=== PATIENT | male | born 1935 | race Caucasian/White ===

== ENCOUNTER 2023-11-14 08:04 | Emergency (ER) | payer MEDICARE, OTHER, SELFPAY ==
[2023-11-14 08:17] VITALS: BP 91/57; PULSE 86; TEMP 37.3; O2SAT 90; BMI 30.4
--- NOTE | 2023-11-14 08:29 | XRR_ITS ---
PROCEDURE INFORMATION: Exam: XR Abdomen Exam date and time: 11/14/2023 8:42 AM Age: 88 years old Clinical indication: Abdominal tenderness and constipation and nausea TECHNIQUE: Imaging protocol: Radiologic exam of the abdomen. Views: Frontal supine view of the abdomen. 1 View. COMPARISON: CR (CHEST, ) 11/14/2023 8:41 AM FINDINGS: Gastrointestinal tract: Nonobstructive bowel-gas pattern. Bones/joints: No acute osseous findings. Soft tissues: Visualized superficial soft tissues are normal in appearance. Other findings: Superior aspect of the abdomen are excluded from the field of view. XR/XR abdomen 1V* [id number] IMPRESSION: Nonobstructive bowel gas pattern.
--- NOTE | 2023-11-14 08:29 | XRR_ITS ---
PROCEDURE INFORMATION: Exam: XR Chest Exam date and time: 11/14/2023 8:41 AM Age: 88 years old Clinical indication: Pain; Cough and shortness of breath; Chest pressure and intercostal; Prior surgery; Surgery date: 6+ months; Surgery type: Pacemaker TECHNIQUE: Imaging protocol: Radiologic exam of the chest. Views: 1 view. COMPARISON: CR XR chest 1V portable [id number] 11/29/2019 3:07 PM FINDINGS: Tubes, catheters and devices: Single lead electronic cardiac device projects over the left chest, stable. Lungs: Mild bibasilar hazy and linear opacities. No focal consolidation to suggest overlying pneumonia. Pleural spaces: No large pleural effusion. No distinct pneumothorax. Heart/Mediastinum: Cardiomediastinal silhouette is midline and enlarged, stable. Vasculature: Calcifications of the aortic knob. Bones/joints: No acute osseous findings. XR/XR chest 1V portable [id number] IMPRESSION: 1. Cardiomediastinal silhouette is midline and enlarged, stable. 2. Mild bibasilar hazy and linear opacities. This likely represents mild bibasilar subsegmental atelectasis.
--- NOTE | 2023-11-14 08:30 | ED_ITS ---
HPI - General Adult 2 General: Chief complaint: General Medical Stated complaint: kidney trouble Time Seen by Provider: 11/14/23 08:07 History of Present Illness: Patient presents to the ER with complaints of cough, shortness of breath no bowel movement, decreased urine production all over the last 3 days. Patient is also had urinary incontinence when he coughs. Patient denies any fevers or chills, patient has had nausea and vomiting. Patient does have A-fib and is on Coumadin. Patient is not complaining of any abdominal pain however he says he has not had a bowel movement for over 3 days. Review of Systems 2 General: Reports: 10 or more systems reviewed and unremarkable except in HPI and below PFSH ED 2 PFSH: Surgical History History of colonoscopy 2005 History of inguinal hernia repair, bilateral (x3) History of ankle surgery 1954 Social History Second hand smoke exposure: No Alcohol intake: never Substance/Drug Use: never Caregiver/support person: Yes Lives independently: Yes Household members: spouse Marital status: service: No Current occupational status: retired Current gender identity: Male Special donaldo needs: No Agree to transfusion: Yes Physical Exam 2 Const: COMMON NORMALS: no acute distress, average body habitus, patient oriented x3, no limitations, healthy appearing, alert and well nourished HENMT: COMMON NORMALS: normocephalic, atraumatic, hearing grossly normal bilaterally, external ears normal, EAC's normal, Normal external nose present, moist oral mucous membranes and oropharynx normal HEAD & SCALP: normocephalic and atraumatic NOSE: Normal external nose present EXTERNAL EAR: Yes external ears normal EXTERNAL AUDITORY CANAL: EAC's normal Neck/C-Spine: COMMON NORMALS: no JVD Chest: COMMONS NORMALS: normal inspection of the chest and normal palpation of entire chest wall Resp: COMMON NORMALS: normal respiratory effort, No retractions, No use of accessory muscles and clear to auscultation bilaterally AUSCULTATION: clear to auscultation bilaterally Cardio: COMMON NORMALS: no JVD, regular rate, regular rhythm, S1 normal heart sound present, S2 normal heart sound present, No gallops present (Cardio), No clicks present (Cardio), No murmurs present (Cardio) and No rub (Cardio) R ATE: regular rate RHYTHM: regular rhythm HEART SOUNDS: S1 normal heart sound present and S2 normal heart sound present GI: COMMON NORMALS: Normal to inspection, nondistended, normoactive bowel sounds present, Soft to palpation, non-tender, No hepatosplenomegaly present and no masses PALPATION: Yes Soft to palpation and Yes No hepatosplenomegaly present : OTHER: Urinary incontinence noted Neuro: COMMON NORMALS: patient oriented x3 SENSORIUM/ORIENTATION: Yes alert Course 2 Vital Signs: Vital signs: Vital Signs Temperature 99.1 F 11/14/23 08:17 Pulse Rate 88 11/14/23 10:42 Respiratory Rate 18 11/14/23 10:42 Blood Pressure 154/97 11/14/23 10:42 Pulse Oximetry 91 11/14/23 10:42 Oxygen Delivery Me thod Room Air 11/14/23 10:09 MDM - General Adult Medical Decision Making Lab work was obtained which revealed a sodium of 127, magnesium 1.6, total bilirubin 1.6, AST 67 ALT 51 [place] 4[address] urinalysis did not show signs of infection. Abdominal x-ray showed nonobstructive bowel gas pattern and chest x- ray atelectasis. These results was discussed with the patient and . Levy catheter will be left in place to have family practice doctor remove on Wednesday per patient's wishes cough medicine will be sent to [facility] in failure. Medical Records I reviewed the patient's medical records. Lab Data I reviewed the patient's lab results. 11/14/23 09:25 11/14/23 09:25 Radiology Impressions Abdomen X-Ray 11/14/23 08:29 IMPRESSION: Nonobstructive bowel gas pattern. Chest X-Ray 11/14/23 08:29 IMPRESSION: 1. Cardiomediastinal silhouette is midline and enlarged, stable. 2. Mild bibasilar hazy and linear opacities. This likely represents mild bibasilar subsegmental atelectasis. Laboratory Results WBC 10.05 10^3/uL (3.29-11.43) 11/14/23 09:25 RBC 4.16 10^6/uL (3.85-5.65) 11/14/23 09:25 Hgb 14.50 g/dL (11.27-16.99) 11/14/23 09:25 Hct 41.6 % (37-53) 11/14/23 09:25 MCV 100.0 fl (82-101) 11/14/23 09:25 MCH 34.9 pg (27-33) H 11/14/23 09:25 MCHC 34.9 g/dL (30-55) 11/14/23 09:25 RDW 13.2 % (12.1-15.1) 11/14/23 09:25 Plt Count 178 10^3/cmm (157-399) 11/14/23 09:25 MPV 8.7 fL (7.4-10.4) 11/14/23 09:25 Neut % (Auto) 82.4 % 11/14/23 09:25 Lymph % (Auto) 7.0 % 11/14/23 09:25 [place] % (Auto) 10.2 % 11/14/23 09:25 Eos % (Auto) 0.0 % 11/14/23 09:25 Baso % (Auto) 0.1 % 11/14/23 09:25 Neut # (Auto) 8.28 10^3/uL (1.8-7.7) H 11/14/23 09:25 Lymph # (Auto) 0.7 10^3/uL (0.8-4.8) L 11/14/23 09:25 [place] # (Auto) 1.0 10^3/uL (0.2-0.9) H 11/14/23 09:25 Eos # (Auto) 0.0 10^3/uL (0.0-0.8) 11/14/23 09:25 Baso # (Auto) 0.0 10^3/uL (0.0-0.1) 11/14/23 09:25 Nucleated RBC % (auto) 0 % 11/14/23 09: Nucleated RBCs # 0.0 /100WBC 11/14/23 09:25 PT 15.50 SECONDS (12.1-14.9) H 11/14/23 09:25 INR 1.19 (0.8-1.2) 11/14/23 09:25 Sodium 127 mmol/L (136-145) L 11/14/23 09:25 Potassium 4.0 mmol/L (3.5-5.1) 11/14/23 09:25 Chloride 93 mmol/L (98-107) L 11/14/23 09:25 Carbon Dioxide 24 mmol/L (22-29) 11/14/23 09:25 Anion Gap 14.0 (5-19) 11/14/23 09:25 BUN 12 mg/dL (8-23) 11/14/23 09:25 Creatinine 0.9 mg/dL (0.7-1.2) 11/14/23 09:25 GFR Calculation Not Reportable 11/14/23 09:25 Glucose 106 mg/dL (65-115) 11/14/23 09:25 Calculated Osmolality 264 mOsm/kg (285-295) L 11/14/23 09:25 Calcium 8.2 mg/dL (8.5-10.5) L 11/14/23 09:25 Magnesium 1.6 mg/dL (1.7-2.3) L 11/14/23 09:25 Total Bilirubin 1.6 mg/dL (0.15-1.2) H 11/14/23 09:25 AST 67 U/L (0-40) H 11/14/23 09:25 ALT 51 U/L (0-41) H 11/14/23 09:25 Alkaline Phosphatase 87 U/L (40-130) 11/14/23 09:25 NT-Pro-B Natriuret Pep 4843 pg/mL (0-450) H 11/14/23 09:25 Total Protein 6.2 g/dL (6.6-8.7) L 11/14/23 09:25 Albumin 3.1 g/dL (3.5-5.2) L 11/14/23 09:25 Globulin 3.1 g/dL (1.3-4.6) 11/14/23 09:25 Urine Color Yellow (Yellow) 11/14/23 09:20 Urine Appearance Clear (CLEAR) 11/14/23 09:20 Urine pH 6 (5-7) 11/14/23 09:[address] 1.015 (1.005-1.030) 11/14/23 09:20 Urine Protein 1+ (Negative) H 11/14/23 09:20 Urine Glucose (UA) Norm (Normal) 11/14/23 09:20 Urine Ketones Negative (Negative) 11/14/23 09:20 Urine Blood Trace (Negative) H 11/14/23 09:20 Urine Nitrate Negative (Negative) 11/14/23 09:20 Urine Bilirubin 1+ (Negative) H 11/14/23 09:20 Urine Urobilinogen 8 mg/dL (Negative) H 11/14/23 09:20 Ur Leukocyte Esterase Negative (Negative) 11/14/23 09:20 Urine RBC 0-4 /hpf (0-2) H 11/14/23 09:20 Urine WBC Rare /hpf (0-5) 11/14/23 09:20 Ur Squamous Epith Cells 0-4 /hpf (0-5) H 11/14/23 09:20 Amorphous Sediment Not Reportable 11/14/23 09:20 Urine Bacteria Trace /hpf (NONE) 11/14/23 09:20 All radiology interpretation(s) finalized by discharge Discharge Plan Discharge Patient Disposition: Home Clinical Impression: Acute hyponatremia Cough Qualifiers: Cough type: acute Qualified Code(s): R05.1 - Acute cough Urinary incontinence Qualifiers: Urinary Incontinence type: unspecified incontinence Qualified Code(s): R32 - Unspecified urinary incontinence Condition: Stable Prescriptions: New benzonatate 100 mg capsule 100 mg PO TID PRN (Reason: cough) Qty: 30 0RF No Action triamcinolone acetonide 0.1 % cream 1 applic TOPICAL DAILY Qty: 30 0RF Rx Instructions: use as directed. diclofenac sodium [Voltaren Arthritis Pain] 1 % gel 4 g topical QID Qty: 100 0RF Rx Instructions: use on right arm pantoprazole [Protonix] 40 mg tablet,delayed release (DR/EC) 40 mg PO DAILY 30 Days Qty: 30 0RF (DME) mdINR 1 kit See Rx Instructions .Route .MEDSUPPLY Qty: 1 0RF Rx Instructions: As directed warfarin 5 mg tablet See Rx Instructions .ROUTE .COMPLEX Qty: 30 0RF Protocol: Dose Management Condition: Wednesday Dose/Route: 2.5 mg Instruction: 0.5 x 5 mg tablets Condition: Wednesday Dose/Route: 2.5 mg Instruction: 0.5 x 5 mg tablets Condition: Wednesday Dose/Route: 5 mg Instruction: 1 x 5 mg tablet Condition: Wednesday Dose/Route: 2.5 mg Instruction: 0.5 x 5 mg tablets Condition: Dose/Route: 2.5 mg Instruction: 0.5 x 5 mg tablets Condition: Wednesday Dose/Route: 2.5 mg Instruction: 0.5 x 5 mg tablets Condition: Wednesday Dose/Route: 5 mg Instruction: 1 x 5 mg tablet Protocol Text: Adjustment Start Date: 12/04/21 INR Value: 48.50 SECONDS INR Date: 12/04/21 Recheck Date: 12/11/21 Dose Instruction: TAKE ONE TABLET BY MOUTH ONCE DAILY Rx Instructions: TAKE ONE TABLET BY MOUTH ,,Wed,Wed and 1/2 tab M,W,F trazodone 50 mg tablet See Rx Instructions .ROUTE .COMPLEX Qty: 7 0RF Dose Instruction: TAKE 1/2 TABLET BY MOUTH DAILY Rx Instructions: TAKE 1/2 TABLET BY MOUTH DAILY sildenafil [Viagra] 100 mg tablet 100 mg PO DAILY PRN (Reason: sexual activity) Qty: 30 3RF Rx Instructions: administer 30 minutes to 4 hours before activity tamsulosin 0.4 mg capsule See Rx Instructions .ROUTE .COMPLEX Qty: 90 0RF Dose Instruction: TAKE ONE CAPSULE BY MOUTH EVERY DAY Rx Instructions: TAKE ONE CAPSULE BY MOUTH EVERY DAY spironolactone 25 mg tablet 25 mg PO DAILY simvastatin 20 mg tablet 20 mg PO DAILY lisinopril 10 mg tablet 10 mg PO DAILY fluticasone propionate 50 mcg/actuation spray,suspension 1 spray INTRANASAL DAILY Rx Instructions: 1 spray each nostral daily Fish Oil 300-500 mg Capsule 500 cap PO DAILY Voltaren 1 % gel See Rx Instructions .ROUTE .COMPLEX Rx Instructions: topically apply 2 grams tid transdermal hydrocodone-acetaminophen 5-325 mg tablet 1 tab PO Q6H PRN (Reason: pain) Qty: 14 0RF Discharge Orders: Discharge ED (Routine); Ordered 11/14/23 Ordered By: Dung Otero Referrals: Camelia Rodriguez FNP [Primary Care Provider] - 1 week Patient Instructions: Hyponatremia (ED), Acute Cough (ED), Urinary Incontinence Activity Restrictions/Additional Instructions: Please take all medicine as prescribed. Please follow-up with your family practice physician within next 7 days for further evaluation and treatment. They may remove your Levy catheter and suggest that the also recheck your sodium. Coding Level of Care Code ED Appliance Fixer for Roxane Simpson
[2023-11-14 09:55] LABS: Basophils % 0.1 %; Hematocrit 41.6 % (37-53); Lymphocytes # 0.7 10^3/uL (0.8-4.8); Mean Corpuscular HGB Conc 34.9 g/dL (30-55); Mean Corpuscular Hemoglobin 34.9 pg (27-33); Mean Platelet Volume 8.7 fL (7.4-10.4); Monocytes % 10.2 %; Neutrophils # 8.28 10^3/uL (1.8-7.7); Neutrophils % 82.4 %; Nucleated Red Blood Cells % 0 %; Platelet Count 178 10^3/cmm (157-399); Red Blood Count 4.16 10^6/uL (3.85-5.65); Red Cell Distribution Width 13.2 % (12.1-15.1); White Blood Count 10.05 10^3/uL (3.29-11.43)
[2023-11-14 09:57] LABS: Specific Gravity, Urine 1.015 (1.005-1.030); Urine Appearance Clear (CLEAR); Urine Color Yellow (Yellow); pH Urine 6 (5-7)
[2023-11-14 09:58] LABS: Add Urine Culture? No; Add Urine Microscopic? YES; Bacteria Urine TRACE /hpf; Bilirubin Urine 1+ (Negative); Blood Urine Trace (Negative); Glucose Urine UA Norm (Normal); Ketones Urine Negative (Negative); Leukocyte Esterase Urine Negative (Negative); Nitrate Urine Negative (Negative); Protein Urine 1+ (Negative); RBC Urine 0-4 /hpf (0-2); Squamous Epithelial Cell Urine 0-4 /hpf (0-5); Urobilinogen Urine 8 mg/dL (Negative); WBC Urine RARE /hpf (0-5)
[2023-11-14 10:03] LABS: INR 1.19 (0.8-1.2)
[2023-11-14 10:09] VITALS: BP 137/88; PULSE 82; O2SAT 92
[2023-11-14 10:16] LABS: Alanine Aminotransferase 51 U/L (0-41); Albumin Level 3.1 g/dL (3.5-5.2); Alkaline Phosphatase 87 U/L (40-130); Aspartate Amino Transferase 67 U/L (0-40); Blood Urea Nitrogen 12 mg/dL (8-23); Calcium 8.2 mg/dL (8.5-10.5); Carbon Dioxide 24 mmol/L (22-29); Chloride 93 mmol/L (98-107); Creatinine Clr Calc Pharmacy 64.7454; Globulin 3.1 g/dL (1.3-4.6); Glucose 106 mg/dL (65-115); Magnesium 1.6 mg/dL (1.7-2.3); NT Pro B Type Natriuretic Pept 4843 pg/mL (0-450); Osmolality Calculated 264 mOsm/kg (285-295); Sodium 127 mmol/L (136-145); Total Bilirubin 1.6 mg/dL (0.15-1.2); Total Protein 6.2 g/dL (6.6-8.7)
[2023-11-14 10:42] VITALS: BP 154/97; PULSE 88; RESP 18; O2SAT 91
== END 2023-11-14 10:44 | disposition home or self-care (01) ==
PROVIDERS: Emergency Provider Emergency Medicine; PCP Nurse Practitioner Family
DX: R05.1 Acute cough (principal); E87.1 Hypo-osmolality and hyponatremia; R32 Unspecified urinary incontinence; Z79.01 Long term (current) use of anticoagulants
CPT/HCPCS: 36415; 51702; 71045; 74018; 80053; 81001; 83735; 83880; 85025; 85610; 99284

== ENCOUNTER 2023-11-15 10:07 | Observation (INO) | payer MEDICARE, SELFPAY ==
[2023-11-15] VITALS (7 sets, daily range): BP systolic 104–141; BP diastolic 54–106; PULSE 73–86; RESP 16–24; TEMP 36.4–37.2; O2SAT 93–98; BMI 30.7
[2023-11-15 11:09] LABS: Basophils % 0.3 %; Hematocrit 41.7 % (37-53); Lymphocytes # 1.1 10^3/uL (0.8-4.8); Mean Corpuscular HGB Conc 34.8 g/dL (30-55); Mean Corpuscular Hemoglobin 34.5 pg (27-33); Mean Corpuscular Volume 99.3 fl (82-101); Mean Platelet Volume 8.3 fL (7.4-10.4); Monocytes # 1.1 10^3/uL (0.2-0.9); Monocytes % 10.5 %; Neutrophils # 8.48 10^3/uL (1.8-7.7); Neutrophils % 78.8 %; Nucleated Red Blood Cells % 0 %; Platelet Count 190 10^3/cmm (157-399); Red Cell Distribution Width 13.1 % (12.1-15.1); White Blood Count 10.75 10^3/uL (3.29-11.43)
[2023-11-15 11:30] LABS: Alanine Aminotransferase 52 U/L (0-41); Albumin Level 3.3 g/dL (3.5-5.2); Alkaline Phosphatase 106 U/L (40-130); Anion Gap 15.6 (5-19); Aspartate Amino Transferase 62 U/L (0-40); Blood Urea Nitrogen 17 mg/dL (8-23); Calcium 8.5 mg/dL (8.5-10.5); Carbon Dioxide 25 mmol/L (22-29); Chloride 91 mmol/L (98-107); Creatinine Clr Calc Pharmacy 58.5279; Globulin 3.3 g/dL (1.3-4.6); Glucose 108 mg/dL (65-115); Osmolality Calculated 266 mOsm/kg (285-295); Potassium 4.6 mmol/L (3.5-5.1); Sodium 127 mmol/L (136-145); Total Bilirubin 1.6 mg/dL (0.15-1.2); Total Protein 6.6 g/dL (6.6-8.7)
--- NOTE | 2023-11-15 11:37 | XRR_ITS ---
PROCEDURE INFORMATION: Exam: XR Chest Exam date and time: 11/15/2023 11:42 AM Age: 88 years old Clinical indication: Cough and dyspnea; Patient HX: Blood in urine; Additional info: Dyspnea/cough TECHNIQUE: Imaging protocol: Radiologic exam of the chest. Views: 1 view. COMPARISON: CR (CHEST, ) 11/14/2023 8:41 AM FINDINGS: Tubes, catheters and devices: RV pacer in place. Lungs: Bibasilar infiltrates have increased in comparison to the prior study. Pleural spaces: Unremarkable. No pleural effusion. No pneumothorax. Heart/Mediastinum: Unchanged cardiomegaly. Bones/joints: Degenerative changes in the thoracic spine. XR/XR chest 1V portable [id number] IMPRESSION: 1. Bibasilar infiltrates have increased in comparison to the prior study. Most likely this represents increase in subsegmental atelectasis but infection and aspiration are also considerations. 2. Unchanged cardiomegaly.
[2023-11-15 12:12] LABS: NT Pro B Type Natriuretic Pept 6442 pg/mL (0-450)
--- NOTE | 2023-11-15 12:12 | CT_ITS ---
WS: [id number] CT ABDOMEN PELVIS TECHNIQUE: Noncontrast CT of the abdomen and pelvis with coronal and sagittal reformatted images. CLINICAL INFORMATION: flank pain/reports hematuria COMPARISON: None. DLP: 930.[address] scans at [facility] use at least one of these dose optimization techniques: automated e xposure control; mA and/or kV adjustment per patient size (includes targeted exams where dose is matc hed to clinical indication); or iterative reconstruction. FINDINGS: Cardiomegaly. Patchy airspace infiltrates in both lower lobes with partial consolidation compatible w ith pneumonia. Patchy infiltrates in the RIGHT middle lobe. Noncontrast liver slightly cirrhotic shru nken contour. Small esophageal hiatal hernia. Normal noncontrast spleen. Fatty atrophy of the pancrea s. 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 Adrenal glands are normal. No hydronephrosis in either kidney. Bilateral perinephric edema can be see n with renal insufficiency. Lobulated LEFT renal cysts. No obstructing renal or ureteral calculi. Mil d bladder wall thickening with evidence of bladder outlet obstruction. Enlarged prostate measuring 3. 9 x 4.4 cm. Recommend correlation PSA. Indentation of the bladder. Dorsal bladder diverticulum measur ing 9 mm. Normal sigmoid colon. No evidence of high-grade small or large bowel obstruction. Grade 1 anterolisth esis L5 on S1. Hypertrophic and degenerative changes sacroiliac joints. IMPRESSION: 1. Bilateral lower lobe and RIGHT middle lobe pneumonia with airspace infiltrates and partial consol idation. 2. Small esophageal hiatal hernia. 3. No hydronephrosis in either kidney. No obstructing renal or ureteral calculi. Mild perinephric ed karen can be seen with renal insufficiency. 4. Low-attenuation LEFT renal cysts. This can be followed up with ultrasound. 5. Enlarged prostate with indentation on the bladder. Recommend correlation PSA. Evidence of mild bl adder outlet obstruction. 6. Dorsal bladder diverticulum measuring 9 mm. Recommend follow-up cystoscopy. 7. Slightly shrunken and cirrhotic contour to the liver. 8. 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
--- NOTE | 2023-11-15 12:12 | W.ED.HA ---
HPI - Headache General: Chief Complaint: Headache Stated Complaint: blood in urine, headache, diarrhea Time Seen by Provider: 11/15/23 11:23 Source: patient Mode of arrival: ambulatory History of Present Illness: 88-year-old male presents emergency room with complaint of headache mildly productive cough flank pain he is also thought he had seen some blood in his urine. He was seen yesterday no significant hematuria. He did have some mild hyponatremia his renal function and potassium were normal white count and hemoglobin at that time are normal. He feels like his cough has gotten worse since he was seen yesterday. He also feels like his kidneys if she had 9 bases on the fact that his not urinating as much. His creatinine yesterday was normal MD elicited complaint: headache Onset (ago): day(s) Exacerbating factors: none Relieving factors: nothing Associated symptoms: Reports malaise and nausea; Deny chest pain, confusion, cough, diaphoresis, eye pain, eye redness, fever(s), lightheadedness, loss of vision, neck stiffness, numbness, paresthesias, photophobia, pre-syncope, rash, seizures, short of breath, sound sensitivity, syncope, vomiting or weakness Review of Systems Const: Reports: malaise; Denies: fever(s) or diaphoresis Card: Denies: chest pain, lightheadedness, syncope or pre-syncope Resp: Denies: dyspnea GI: Reports: nausea; Denies: vomiting : Denies: dysuria, urinary frequency or urinary urgency Musc: Denies: neck pain or back pain Skin/Breast: Denies: rash Neuro: Denies: confusion PFSH ED PFSH: Surgical History History of colonoscopy 2005 History of inguinal hernia repair, bilateral (x3) History of ankle surgery 1954 Social History Second hand smoke exposure: No Alcohol intake: never Substance/Drug Use: never Caregiver/support person: Yes Lives independently: Yes Household members: spouse Marital status: service: No Current occupational status: retired Current gender identity: Male Special donaldo needs: No Agree to transfusion: Yes Physical Exam Const: COMMON NORMALS: no acute distress GENERAL APPEARANCE: cooperative and comfortable ORIENTATION/CONSCIOUSNESS: Yes awake, Yes oriented to person, Yes oriented to place and Yes oriented to time HENMT: COMMON NORMALS: normocephalic, atraumatic and hearing grossly normal bilaterally HEAD & SCALP: normocephalic and atraumatic Eye: DIRECT OPHTHALMOSCOPY: No photophobia Resp: COMMON NORMALS: normal respiratory effort, No retractions, No use of accessory muscles and clear to auscultation bilaterally AUSCULTATION: clear to auscultation bilaterally Cardio: COMMON NORMALS: regular rate, regular rhythm and No murmurs present (Cardio) RATE: regular rate RHYTHM: regular rhythm GI: COMMON NORMALS: Soft to palpation and No hepatosplenomegaly present AUSCULTATION: Yes normoactive bowel sounds PALPATION: Yes Soft to palpation, No Tenderness to palpation present (GI), No Guarding due to palpation present (GI) and Yes No hepatosplenomegaly present Extremity: COMMON NORMALS: normal to inspection, capillary refill normal, no clubbing, cyanosis or edema, no calf tenderness and no pedal edema Neuro: SENSORIUM/ORIENTATION: Yes oriented to person, Yes oriented to place and Yes oriented to time Skin: COMMON NORMALS: no rashes or lesions noted GENERAL SKIN EXAM: no rashes or lesions noted Course Vital Signs: Vital signs: Vital Signs Temperature 97.6 F 11/15/23 10:31 Pulse Rate 86 11/15/23 10:31 Respiratory Rate 18 11/15/23 11:49 Blood Pressure 122/86 11/15/23 14:34 Pulse Oximetry 98 11/15/23 14:34 Oxygen Delivery Me thod Room Air 11/15/23 14:34 MDM - Headache Medical Decision Making Lactic acid at is elevated. Patient has increasing pneumonia on chest x-ray is given ceftriaxone and Zithromax. His laboratory studies are more concerning for CHF. His T. bili and liver enzymes are elevated his BNP is markedly elevated as well. Discussed with hospitalist placed on observation antibiotic started. Medical Records I reviewed the patient's medical records. Lab Data I reviewed the patient's lab results. 11/15/23 11:00 11/15/23 11:00 Radiology Impressions Chest X-Ray 11/15/23 11:37 IMPRESSION: 1. Bibasilar infiltrates have increased in comparison to the prior study. Most likely this represents increase in subsegmental atelectasis but infection and aspiration are also considerations. 2. Unchanged cardiomegaly. Laboratory Results WBC 10.75 10^3/uL (3.29-11.43) 11/15/23 11:00 RBC 4.20 10^6/uL (3.85-5.65) 11/15/23 11:00 Hgb 14.50 g/dL (11.27-16.99) 11/15/23 11:00 Hct 41.7 % (37-53) 11/15/23 11:00 MCV 99.3 fl (82-101) 11/15/23 11:00 MCH 34.5 pg (27-33) H 11/15/23 11:00 MCHC 34.8 g/dL (30-55) 11/15/23 11:00 RDW 13.1 % (12.1-15.1) 11/15/23 11:00 Plt Count 190 10^3/cmm (157-399) 11/15/23 11:00 MPV 8.3 fL (7.4-10.4) 11/15/23 11:00 Neut % (Auto) 78.8 % 11/15/23 11:00 Lymph % (Auto) 10.0 % 11/15/23 11:00 [place] % (Auto) 10.5 % 11/15/23 11:00 Eos % (Auto) 0.0 % 11/15/23 11:00 Baso % (Auto) 0.3 % 11/15/23 11:00 Neut # (Auto) 8.48 10^3/uL (1.8-7.7) H 11/15/23 11:00 Lymph # (Auto) 1.1 10^3/uL (0.8-4.8) 11/15/23 11:00 [place] # (Auto) 1.1 10^3/uL (0.2-0.9) H 11/15/23 11:00 Eos # (Auto) 0.0 10^3/uL (0.0-0.8) 11/15/23 11:00 Baso # (Auto) 0.0 10^3/uL (0.0-0.1) 11/15/23 11:00 Nucleated RBC % (auto) 0 % 11/15/23 11:00 Nucleated RBCs # 0.0 /100WBC 11/15/23 11:00 Sodium 127 mmol/L (136-145) L 11/15/23 11:00 Potassium 4.6 mmol/L (3.5-5.1) 11/15/23 11:00 Chloride 91 mmol/L (98-107) L 11/15/23 11:00 Carbon Dioxide 25 mmol/L (22-29) 11/15/23 11:00 Anion Gap 15.6 (5-19) 11/15/23 11:00 BUN 17 mg/dL (8-23) 11/15/23 11:00 Creatinine 1.0 mg/dL (0.7-1.2) 11/15/23 11:00 GFR Calculation Not Reportable 11/15/23 11:00 Glucose 108 mg/dL (65-115) 11/15/23 11:00 Calculated Osmolality 266 mOsm/kg (285-295) L 11/15/23 11:00 Lactic Acid 2.7 mmol/L (0.5-2.2) H 11/15/23 11:00 Calcium 8.5 mg/dL (8.5-10.5) 11/15/23 11:00 Total Bilirubin 1.6 mg/dL (0.15-1.2) H 11/15/23 11:00 AST 62 U/L (0-40) H 11/15/23 11:00 ALT 52 U/L (0-41) H 11/15/23 11:00 Alkaline Phosphatase 106 U/L (40-130) 11/15/23 11:00 NT-Pro-B Natriuret Pep 6442 pg/mL (0-450) H 11/15/23 11:00 Total Protein 6.6 g/dL (6.6-8.7) 11/15/23 11:00 Albumin 3.3 g/dL (3.5-5.2) L 11/15/23 11:00 Globulin 3.3 g/dL (1.3-4.6) 11/15/23 11:00 Coronavirus 229E (PCR) Not detected (NOT DETECT) 11/15/23 11:50 Human Metapneumovir PCR Not detected (NOT DETECT) 11/15/23 14:01 Influenza Type A Ag negative (Negative) 11/15/23 11:50 Influenza Type B Ag negative (Negative) 11/15/23 11:50 Entero/Rhino (PCR) Detected (NOT DETECT) A 11/15/23 14:01 SARS-CoV-2 (PCR) Not detected (NOT DETECT) 11/15/23 11:50 All radiology interpretation(s) finalized by discharge Discharge Plan Discharge Admit Provider: Gala Heller Condition: Stable Coding Level of Care Code ED Paradichlorobenzene Machine Operator for [facility]
[2023-11-15 12:26] LABS: Influenza A by IFA negative (Negative); Influenza B by IFA negative (Negative)
--- NOTE | 2023-11-15 12:47 | US_ITS ---
WS: [id number] ULTRASOUND ABDOMEN LIMITED CLINICAL INFORMATION: elevated LFTS and t bili COMPARISON: None. FINDINGS: Liver Size: Cirrhotic contour Craniocaudal length: 14.5 cm. Echogenicity: Coarse Mass (size and location): None. Bile ducts Intrahepatic ducts: Normal. Common bile duct diameter: 0.5 cm. Gallbladder Normal. Gallstones: None. Gallbladder sludge: None. Gallbladder wall thickening: None. Pericholecystic fluid: None. Sonographic Torres sign: Absent. Pancreas Normal as visualized. Right kidney: Normal. Hydronephrosis: None. Size: 10.2 cm x 5.2 cm x 5.1 cm. Abdominal aorta and IVC Visualized portions are normal. Ascites: None. IMPRESSION: 1. Slightly cirrhotic configuration to the liver. 2. Normal gallbladder. No cholelithiasis. 3. Normal common bile duct. 4. No hydronephrosis in the RIGHT kidney.
[2023-11-15 13:02] LABS: Lactic Sepsis W/Reflex 2.7 mmol/L (0.5-2.2)
[2023-11-15] MEDS: cefTRIAXone 1,000 MG in sodium chloride 0.9% (plus) 50 ML 100 MG IV (13:07)
[2023-11-15] MEDS: sodium chloride 0.9% 1,000 ML 999 ML IV (13:08)
[2023-11-15] MEDS: azithromycin 500 MG in sodium chloride 0.9% 250 ML 250 MG IV (13:49)
[2023-11-15 13:53] LABS: Adenovirus Not Detected (NOT DETECT); Chlamydia Pneumoniae Not Detected (NOT DETECT); Coronavirus 229E,HKU1,NL63,OC4 Not Detected (NOT DETECT); Human Metapneumovirus Not Detected (NOT DETECT); Human Rhinovirus/Enterovirus Detected (NOT DETECT); Influenza A Not Detected (NOT DETECT); Influenza A H1 Not Detected (NOT DETECT); Influenza A H1-2009 Not Detected (NOT DETECT); Influenza A H3 Not Detected (NOT DETECT); Influenza B Not Detected (NOT DETECT); Mycoplasma Pneumoniae Not Detected (NOT DETECT); Parainfluenza Virus Type 1 Not Detected (NOT DETECT); Parainfluenza Virus Type 2 Not Detected (NOT DETECT); Parainfluenza Virus Type 3 Not Detected (NOT DETECT); Parainfluenza Virus Type 4 Not Detected (NOT DETECT); Respiratory Syncytial Virus A Not Detected (NOT DETECT); Respiratory Syncytial Virus B Not Detected (NOT DETECT); SARS-COV-2 Not Detected (NOT DETECT)
[2023-11-15 14:01] LABS: Human Metapneumovirus Not Detected (NOT DETECT); Human Rhinovirus/Enterovirus Detected (NOT DETECT); Results from Genmark
[2023-11-15 14:37] LABS: Reflex Lactate Order REFLEX LACTIC ORDERD
[2023-11-15 14:50] LABS: Troponin(5th) Baseline 32 ng/L (0-15)
[2023-11-15 15:15] LABS: Lactic Acid level (Lactate) 2.3 mmol/L (0.5-2.2)
--- NOTE | 2023-11-15 16:20 | ECG_ITS ---
[facility] Test Date: 2023-11-15 Pat Name: Xavier Daily Department: Room: 106 Gender: Male Administrative Fellow: : [id number] Requested By: Cyril Nuñez Order Number: [id number] Sukhjinder MD: Julian Gaona M.D. Measurements Intervals [place] Rate: 76 P: 0 NM: 0 QRS: -63 QRSD: 138 T: 100 QT: 405 QTc: 456 Interpretive Statements ELECTRONIC VENTRICULAR PACEMAKER Electronically Signed On 11-15-2023 23:19:41 TELEVISION PRODUCTION CLERK by Julian Gaona M.D. [email or web address]
[2023-11-15 17:20] LABS: Urine Appearance Clear (CLEAR); Urine Color Yellow (Yellow)
[2023-11-15 17:21] LABS: Add Urine Culture? No; Add Urine Microscopic? YES; Bacteria Urine TRACE /hpf; Bilirubin Urine 1+ (Negative); Blood Urine 2+ (Negative); Glucose Urine UA Norm (Normal); Ketones Urine Negative (Negative); Leukocyte Esterase Urine Negative (Negative); Nitrate Urine Negative (Negative); Protein Urine 1+ (Negative); RBC Urine 0-4 /hpf (0-2); Squamous Epithelial Cell Urine 0-4 /hpf (0-5); Urobilinogen Urine 4 mg/dL (Negative); WBC Urine 0-4 /hpf (0-5); pH Urine 6 (5-7)
--- NOTE | 2023-11-15 19:09 | P.HP_ITS ---
Providers/Chief Complaint 2 Admitting Physician: Gala Heller MD Primary Care Provider: Juliana Beckett, Chief Complaint: blood in urine, headache, diarrhea History of Present Illness Xavier Daily is a 88 year old male who presented to the emergency room with several different complaints. He has had a cough productive of greenish sputum for about 2 weeks now. The cough has progressively worsened to the point that he is having frequent paroxysms of coughing. He has had some associated incontinence with this. He is also had some nausea and at times felt like he might vomit. He has had some loose stools. He also complains of headache. He was seen in the emergency room yesterday. He returns today with persistent symptoms and feeling short of breath. He also has a sore throat. He had complained of some hematuria yesterday but was not noted on urinalysis. He received a prescription for Tessalon Perles. He has not been on any recent antibiotics. No steroids. No history of smoking or known COPD. He does have a history of atrial fibrillation and in reviewing records from [facility] in [place] he also has a history of CHF with an ejection fraction at 30 to 35% on last echocardiogram done there. He had a subarachnoid hemorrhage last fall and is no longer on anticoagulation. He does have a Watchman device that was placed maybe 6 weeks ago. He is doing well in terms of recovery from the subarachnoid hemorrhage though does have some memory issues at times. He lives with his and a [id number] is also staying in the house presently. Workup today continues to show normal white blood count although a slight left shift was noted. Sodium was again noted to be low at 127 along with a low osmolality. Lactic acid was checked today and was noted to be elevated at 2.7. Patient was not tachycardic nor hypotensive but did receive some IV fluids. He is not currently requiring oxygen. Bilirubin and transaminases were noted to be slightly elevated. Baseline troponin was 32 when he was found to have an elevated BNP at 6442. Prior values yesterday 4843 and previous comparative prior to that 1700. Urinalysis today does show 2+ blood with only 0-4 red blood cells per high-powered field but he did have an attempt at Levy catheter placement yesterday that was difficult. Leukocyte esterase and nitrites are negative. Chest x-ray showed increased bibasilar infiltrates compared to images from yesterday clinically felt to be atelectasis on plain films. A CT of the abdomen and pelvis done because of elevated liver enzymes however ended up showing bilateral lower lobe and right middle lobe pneumonia with airspace infiltrates and partial consolidation. Mr. Daily received antibiotics and request was made for admission to observation status. After admission viral testing came back with entero-/rhinovirus positivity. Review of Systems 2 General: Reports: Other (ROS as per HPI or as otherwise noted here) Const: Reports: fatigue, malaise and other (Does not sleep well); Denies: fever(s) ENMT: Reports: throat pain and odynophagia Card: Reports: dyspnea on exertion; Denies: chest pain Resp: Reports: dyspnea, productive cough, wheezing and chest congestion; Denies: pain on inspiration or hemoptysis GI: Reports: nausea and diarrhea; Denies: abdominal pain, hematochezia or melena : Reports: urinary hesitancy, oliguria and urinary incontinence Musc: Reports: other (Sleeps in recliner due to back discomfort/left side discomfort) Neuro: Reports: other (No new neurological symptoms) Chance/Lymph: Reports: easy bruising; Denies: easy bleeding Medications/Allergies Home Medications Medication Instructions Recorded Confirmed Last Taken Type simvastatin 20 mg tablet 20 mg PO BEDTIME 11/29/19 11/15/23 11/28/19 History spironolactone 25 mg tablet 25 mg PO DAILY 11/29/19 11/15/23 11/29/19 History mdINR #1 ea 05/22/21 11/15/23 Unknown Rx sildenafil 100 mg tablet (Viagra) 100 mg PO DAILY PRN sexual 10/06/23 11/15/23 Unknown Rx activity #30 tabs benzonatate 100 mg capsule 100 mg PO TID PRN cough #30 caps 11/14/23 11/15/23 Unknown Rx amlodipine 2.5 mg tablet 2.5 mg PO QPM 11/15/23 11/15/23 Unknown History aspirin 81 mg tablet,delayed 81 mg PO DAILY 11/15/23 11/15/23 Unknown History release clopidogrel 75 mg tablet 75 mg PO QPM 11/15/23 11/15/23 Unknown History duloxetine 30 mg capsule,delayed 30 mg PO BID PRN Anxiety 11/15/23 11/15/23 Unknown History release finasteride 5 mg tablet 5 mg PO QAM 11/15/23 11/15/23 Unknown History lisinopril 5 mg tablet 5 mg PO QAM 11/15/23 11/15/23 Unknown History omeprazole 40 mg capsule,delayed 40 mg PO QAM 11/15/23 11/15/23 Unknown History release pyridoxine (vitamin B6) 50 mg 50 mg PO DAILY 11/15/23 11/15/23 Unknown History tablet (Vitamin B-6) tamsulosin 0.4 mg capsule 0.4 mg PO DAILY 11/15/23 11/15/23 Unknown History tramadol 50 mg tablet 50 - 100 mg PO Q6H PRN Pain 11/15/23 11/15/23 Unknown History vitamin B12 500 mcg-folic acid 400 1 tab PO DAILY 11/15/23 11/15/23 Unknown History mcg tablet Allergies Allergy/AdvReac Type Severity Reaction Status Date / Time No Known Allergies Allergy Verified 11/14/23 08:24 PFSH Acute 2 PFSH: Medical History (Updated 11/15/23 @ 20:25 by Gala Heller MD) Presence of Watchman left atrial appendage closure device Congestive heart failure EF 10/2023 30-35% on echo at [facility] Erectile dysfunction GERD (gastroesophageal reflux disease) Subarachnoid hemorrhage 04/2023 while on anticoagulation for a fib BPH (benign prostatic hyperplasia) Hyperlipidemia Essential hypertension Atrial fibrillation no anticoagulation due to hx of SAH, has Watchman device Surgical History History of colonoscopy 2005 History of inguinal hernia repair, bilateral (x3) History of ankle surgery 1954 Social History Second hand smoke exposure: No Alcohol intake: never Substance/Drug Use: never Caregiver/support person: Yes Lives independently: Yes Household members: spouse Marital status: service: No Current occupational status: retired Current gender identity: Male Special donaldo needs: No Agree to transfusion: Yes Vitals/I&O/Wt Last Vital Signs Temp 98.9 F 11/15/23 16:07 Pulse 73 11/15/23 16:07 Resp 24 H 11/15/23 16:07 BP 120/73 11/15/23 16:07 Pulse Ox 95 11/15/23 16:07 O2 Del Method Room Air 11/15/23 16:07 11/15/23 11/15/23 11/15/23 06:59 14:59 22:59 Intake Total 50 / 50 1250 / 1300 Balance 50 / 50 1250 / 1300 Weight last 48 hrs Weight 97.069 kg Physical Exam 2 Narrative: Patient is awake and alert. Able to provide history. Frequent paroxysms of coughing during evaluation. Normocephalic. Extraocular movements are intact. Conjunctiva are pink, not grossly inflamed. Nasopharynx with clear rhinorrhea. Oropharynx with moist mucous membranes. Posterior pharyngeal erythema and drainage noted. Neck is supple. Lungs with wheezes and crackles right more so than left that worsen with coughing. No sputum production during my evaluation. Abdomen is soft, nontender with positive bowel sounds. Extremities there is 2+ pitting edema bilaterally along with mild chronic stasis changes. Speech is clear. Able to find words if he takes time to think about what he wants to say. Moves all extremities. Data 11/15/23 11:00 11/15/23 11:00 Other Labs: Radiology Impressions Chest X-Ray 11/15/23 11:37 IMPRESSION: 1. Bibasilar infiltrates have increased in comparison to the prior study. Most likely this represents increase in subsegmental atelectasis but infection and aspiration are also considerations. 2. Unchanged cardiomegaly. Laboratory Results WBC 10.75 10^3/uL (3.29-11.43) 11/15/23 11:00 RBC 4.20 10^6/uL (3.85-5.65) 11/15/23 11:00 Hgb 14.50 g/dL (11.27-16.99) 11/15/23 11:00 Hct 41.7 % (37-53) 11/15/23 11:00 MCV 99.3 fl (82-101) 11/15/23 11:00 MCH 34.5 pg (27-33) H 11/15/23 11:00 MCHC 34.8 g/dL (30-55) 11/15/23 11:00 RDW 13.1 % (12.1-15.1) 11/15/23 11:00 Plt Count 190 10^3/cmm (157-399) 11/15/23 11:00 MPV 8.3 fL (7.4-10.4) 11/15/23 11:00 Neut % (Auto) 78.8 % 11/15/23 11:00 Lymph % (Auto) 10.0 % 11/15/23 11:00 [place] % (Auto) 10.5 % 11/15/23 11:00 Eos % (Auto) 0.0 % 11/15/23 11:00 Baso % (Auto) 0.3 % 11/15/23 11:00 Neut # (Auto) 8.48 10^3/uL (1.8-7.7) H 11/15/23 11:00 Lymph # (Auto) 1.1 10^3/uL (0.8-4.8) 11/15/23 11:00 [place] # (Auto) 1.1 10^3/uL (0.2-0.9) H 11/15/23 11:00 Eos # (Auto) 0.0 10^3/uL (0.0-0.8) 11/15/23 11:00 Baso # (Auto) 0.0 10^3/uL (0.0-0.1) 11/15/23 11:00 Nucleated RBC % (auto) 0 % 11/15/23 11:00 Nucleated RBCs # 0.0 /100WBC 11/15/23 11:00 Sodium 127 mmol/L (136-145) L 11/15/23 11:00 Potassium 4.6 mmol/L (3.5-5.1) 11/15/23 11:00 Chloride 91 mmol/L (98-107) L 11/15/23 11:00 Carbon Dioxide 25 mmol/L (22-29) 11/15/23 11:00 Anion Gap 15.6 (5-19) 11/15/23 11:00 BUN 17 mg/dL (8-23) 11/15/23 11:00 Creatinine 1.0 mg/dL (0.7-1.2) 11/15/23 11:00 GFR Calculation Not Reportable 11/15/23 11:00 Glucose 108 mg/dL (65-115) 11/15/23 11:00 Calculated Osmolality 266 mOsm/kg (285-295) L 11/15/23 11:00 Lactic Acid 2.7 mmol/L (0.5-2.2) H 11/15/23 11:00 Lactic Acid (Sepsis) 2.3 mmol/L (0.5-2.2) H 11/15/23 14:45 Calcium 8.5 mg/dL (8.5-10.5) 11/15/23 11:00 Total Bilirubin 1.6 mg/dL (0.15-1.2) H 11/15/23 11:00 AST 62 U/L (0-40) H 11/15/23 11:00 ALT 52 U/L (0-41) H 11/15/23 11:00 Alkaline Phosphatase 106 U/L (40-130) 11/15/23 11:00 Troponin T Baseline 32 ng/L (0-15) H 11/15/23 14:20 Troponin T 120 Minute 32.10 ng/L (0-15) H 11/15/23 16:52 Delta Troponin T 0.10 ABS# (0-10) 11/15/23 16:52 NT-Pro-B Natriuret Pep 6442 pg/mL (0-450) H 11/15/23 11:00 Total Protein 6.6 g/dL (6.6-8.7) 11/15/23 11:00 Albumin 3.3 g/dL (3.5-5.2) L 11/15/23 11:00 Globulin 3.3 g/dL (1.3-4.6) 11/15/23 11:00 Urine Color Yellow (Yellow) 11/15/23 15:00 Urine Appearance Clear (CLEAR) 11/15/23 15:00 Urine pH 6 (5-7) 11/15/23 15:00 Ur Specific [place] 1.010 (1.005-1.030) 11/15/23 15:00 Urine Protein 1+ (Negative) H 11/15/23 15:00 Urine Glucose (UA) Norm (Normal) 11/15/23 15:00 Urine Ketones Negative (Negative) 11/15/23 15:00 Urine Blood 2+ (Negative) H 11/15/23 15:00 Urine Nitrate Negative (Negative) 11/15/23 15:00 Urine Bilirubin 1+ (Negative) H 11/15/23 15:00 Urine Urobilinogen 4 mg/dL (Negative) H 11/15/23 15:00 Ur Leukocyte Esterase Negative (Negative) 11/15/23 15:00 Urine RBC 0-4 /hpf (0-2) H 11/15/23 15:00 Urine WBC 0-4 /hpf (0-5) H 11/15/23 15:00 Ur Squamous Epith Cells 0-4 /hpf (0-5) H 11/15/23 15:00 Amorphous Sediment Not Reportable 11/15/23 15:00 Urine Bacteria Trace /hpf (NONE) 11/15/23 15:00 Coronavirus 229E (PCR) Not detected (NOT DETECT) 11/15/23 11:50 Human Metapneumovir PCR Not detected (NOT DETECT) 11/15/23 14:01 Influenza Type A Ag negative (Negative) 11/15/23 11:50 Influenza Type B Ag negative (Negative) 11/15/23 11:50 Entero/Rhino (PCR) Detected (NOT DETECT) A 11/15/23 14:01 SARS-CoV-2 (PCR) Not detected (NOT DETECT) 11/15/23 11:50 A&P Assessment and plan (1) Community acquired pneumonia: Right lower lobe and right middle lobe, present on admission. Likely viral but cannot rule out developing secondary bacterial infection. Has had persistent cough for couple of weeks now. Has associated elevation in lactic acid but stable heart rate and blood pressure. Afebrile. Normal white count though with slight left shift. He does have elevation in bilirubin and transaminases but I suspect that that may be related to volume overload currently. Not meeting criteria for severe sepsis at the time of admission by sepsis 3 measures though will need to monitor for such. Second lactic acid trending downward. Qualifiers: Laterality: right Lung location: middle lobe of lung Qualified Code(s): J18.9 - Pneumonia, unspecified organism (2) Congestive heart failure: Acute on chronic CHF with reduced ejection fraction, most recent echocardiogram done at [facility] showed EF of 30 to 35% with diffuse hypokinesis with regional variations. Chronically on spironolactone and low-dose SHALINI inhibitor. Qualifiers: Heart failure chronicity: acute on chronic Heart failure type: systolic Qualified Code(s): I50.23 - Acute on chronic systolic (congestive) heart failure (3) Lactic acidosis: Present on admission. Not currently meeting other criteria for sepsis though will need to monitor. Could be from pulmonary edema. Currently has stable oxygenation. Not a known diabetic nor known to have malignancy. No clear medication or other substance related contributor currently. (4) Elevated liver enzymes: Elevated bilirubin and transaminases. Current suspicion is due to edema or viral process. Is on chronic statin therapy and also has a few other medications including [id number] that might impact liver. Imaging unremarkable for acute process. (5) Acute hyponatremia: Clinically appears volume overloaded so suspect hypervolemic though is on chronic medications that may impact sodium levels as well (6) Essential hypertension: Chronically on amlodipine, lisinopril, spironolactone (7) Hyperlipidemia: Chronically on statin therapy Qualifiers: Hyperlipidemia type: mixed hyperlipidemia Qualified Code(s): E78.2 - Mixed hyperlipidemia (8) BPH (benign prostatic hyperplasia): Chronically on tamsulosin and finasteride Qualifiers: Lower urinary tract symptom presence: symptoms present Lower urinary tract symptom detail: urinary hesitancy Qualified Code(s): N40.1 - Benign prostatic hyperplasia with lower urinary tract symptoms; R39.11 - Hesitancy of micturition (9) Atrial fibrillation: Chronic, not anticoagulated secondary to history of subarachnoid hemorrhage. Has Watchman device. Rate controlled without focused medications for this currently. Qualifiers: Atrial fibrillation type: longstanding persistent Qualified Code(s): I 48.11 - Longstanding persistent atrial fibrillation (10) GERD (gastroesophageal reflux disease): On chronic PPI (11) Erectile dysfunction: Has prescription for sildenafil though none recently taken (12) Subarachnoid hemorrhage: History of, not acute, occurring in April 2023 while on anticoagulation. Plan Observation admission for now Will continue antibiotics initiated in the emergency room currently Blood cultures have been ordered Add breathing treatments as needed Recheck lactic acid in am Continue Garry Oconnell Add Cepacol Lasix 20 mg IV x 1 dose, monitoring response, discussed with patient Continue serial cardiac enzymes Telemetry monitoring Recheck electrolytes and liver enzymes in the morning I am going to hold amlodipine currently Will continue lisinopril and spironolactone Holding statin for now Check CK level Continue home finasteride and tamsulosin Monitor for urinary retention Continue home PPI VTE prophylaxis: SCDs, no pharmacological DVT prophylaxis secondary to history of subarachnoid hemorrhage while on anticoagulation GI Prophylaxis: PPI Antibiotics: Rocephin and azithromycin started 11/15/23 Pending studies: blood culture, sputum culture, repeat lactic acid, 6 hr troponin, CK level Telemetry: ordered secondary to respiratory issues and a history of atrial fibrillation Levy: not currently indicated Line(s): peripheral IVs Disposition plan: Home with outpatient follow up to primary care provider Code Status: Full Code Supportive care otherwise Findings, concerns and plans were discussed with patient and they were given an opportunity to ask questions Attestations 2 Medical Necessity Statement*: Currently anticipate a stay less than two midnights in this 88-year-old gentleman who has what looks to be viral pneumonia but is not currently requiring oxygen therapy. Vital signs are also currently stable. He does however have an elevation in lactic acid and some elevated liver enzymes. Concern is potential for developing bacterial secondary infection with sepsis though sepsis 3 criteria are not met at the time of admission nor are sepsis 1 criteria beyond abnormal lab values as described. I have some concern for acute CHF in addition. Currently receiving IV antibiotics, serial labs, IV Lasix and close clinical monitoring. Diagnoses Community acquired pneumonia of right middle lobe of lung J18.9 Laterality: right Lung location: middle lobe of lung Acute on chronic systolic congestive heart failure I50.23 Heart failure chronicity: acute on chronic Heart failure type: systolic Lactic acidosis E87.20 Elevated liver enzymes R74.8 Acute hyponatremia E87.1 Essential hypertension I10 Mixed hyperlipidemia E78.2 Hyperlipidemia type: mixed hyperlipidemia Benign prostatic hyperplasia with urinary hesitancy N40.1; R39.11 Lower urinary tract symptom presence: symptoms present Lower urinary tract symptom detail: urinary hesitancy Longstanding persistent atrial fibrillation I48.11 Atrial fibrillation type: longstanding persistent GERD (gastroesophageal reflux disease) K21.9 Erectile dysfunction N52.9 Subarachnoid hemorrhage I60.9
[2023-11-15 21:35] LABS: Troponin 5 6HR 35.81 ng/L (0-15); Troponin 5 6HR Delta 3.81 ng/L (0-12)
--- NOTE | 2023-11-15 21:44 | PC.NURSE ---
Called and spoke with regarding lasix order which was discussed but nurse did not see order. said ok to give 20mg IV lasix once.
[2023-11-15] MEDS: FUROsemide 10 mg/mL SDV 2mL 20 MG IVP (22:00)
[2023-11-16] VITALS (9 sets, daily range): BP systolic 107–126; BP diastolic 59–85; PULSE 64–93; RESP 12–20; TEMP 36.5–36.9; O2SAT 94–98; BMI 31.3
[2023-11-16] MEDS: ipratropium-albuterol 3 mL Neb INHALATION ×2 (02:16→08:52)
[2023-11-16] MEDS: acetaminophen 325 mg Tablet 650 MG PO (02:20)
[2023-11-16 05:13] LABS: Basophils % 0.2 %; Hematocrit 37.6 % (37-53); Lymphocytes # 1.1 10^3/uL (0.8-4.8); Lymphocytes % 11.2 %; Mean Corpuscular HGB Conc 34.8 g/dL (30-55); Mean Corpuscular Hemoglobin 34.2 pg (27-33); Mean Corpuscular Volume 98.2 fl (82-101); Mean Platelet Volume 8.9 fL (7.4-10.4); Monocytes # 1.1 10^3/uL (0.2-0.9); Monocytes % 11.7 %; Neutrophils # 7.35 10^3/uL (1.8-7.7); Neutrophils % 76.5 %; Nucleated Red Blood Cells % 0 %; Platelet Count 195 10^3/cmm (157-399); Red Blood Count 3.83 10^6/uL (3.85-5.65); White Blood Count 9.62 10^3/uL (3.29-11.43)
[2023-11-16 05:35] LABS: Alanine Aminotransferase 56 U/L (0-41); Albumin Level 2.9 g/dL (3.5-5.2); Alkaline Phosphatase 106 U/L (40-130); Anion Gap 15.6 (5-19); Aspartate Amino Transferase 73 U/L (0-40); Blood Urea Nitrogen 17 mg/dL (8-23); Calcium 8.2 mg/dL (8.5-10.5); Carbon Dioxide 23 mmol/L (22-29); Chloride 92 mmol/L (98-107); Creatinine Clr Calc Pharmacy 65.6162; Globulin 2.9 g/dL (1.3-4.6); Glucose 104 mg/dL (65-115); Magnesium 1.6 mg/dL (1.7-2.3); Osmolality Calculated 266 mOsm/kg (285-295); Phosphorus 2.5 mg/dL (2.5-4.5); Potassium 3.6 mmol/L (3.5-5.1); Sodium 127 mmol/L (136-145); Total Bilirubin 1.3 mg/dL (0.15-1.2); Total Protein 5.8 g/dL (6.6-8.7)
[2023-11-16 05:39] LABS: Lactate (Lactic Acid level) 1.5 mmol/L (0.5-2.2)
[2023-11-16] MEDS: finasteride 5 mg Tablet PO (05:50)
[2023-11-16] MEDS: pantoprazole DR 40 mg Tablet PO (05:50)
[2023-11-16] MEDS: lisinopril 5 mg Tablet PO (05:50)
[2023-11-16 05:54] LABS: Procalcitonin 0.39 ng/mL (0-0.5)
[2023-11-16 06:10] LABS: Creatine Phosphokinase 72 U/L (39-308)
[2023-11-16] MEDS: aspirin 81 mg EC Tablet PO (08:31)
[2023-11-16] MEDS: docusate sodium 100 mg Capsule PO (08:32)
[2023-11-16] MEDS: spironolactone 25 mg Tablet PO (08:32)
[2023-11-16] MEDS: duloxetine 30 mg Capsule PO (08:32)
[2023-11-16] MEDS: pyridoxine 50 mg Tablet PO (08:32)
[2023-11-16] MEDS: tamsulosin 0.4 mg Capsule 0.400000000000000022 MG PO (08:32)
[2023-11-16] MEDS: azithromycin 250 mg Tablet 500 MG PO (08:32)
--- NOTE | 2023-11-16 09:43 | PC.CHAP ---
Pastoral Care Encounter/Spiritual Assessment Type of Contact [] Declined investment banker visit [] Patient/Family/Request visit [] Outpatient visit [] Follow-up visit [] Physician referral [] Code/Alert [] Routine visit [] Staff referral [] Actively dying [] Patient sleeping [] Family support [] [] Out of room [] Palliative care [] [] Receiving care in room [] Pre-surgical visit [] Trauma [] Long length of stay [] ICU visit [x] Other:Contact precautions. No visit. Relational/Emotional Strength [] Patient feels connected with others/family/visitors/staff [] Distress [] Loneliness/isolation [] Abandonment Spirituality of Patient [] Person of Laina [] Attends Advent of their Laina [] Believes in Prayer [] Reads Bible or Adventist materials [] There are Spiritual issues to be addressed Threader Interventions [] Prayer [] Active listening [] Non-anxious presence [] Spiritual/emotional support [] Crisis/trauma care [] Spiritual counseling [] Bereavement support [] Provided bereavement packet [] Provided Bible/devotional materials [] Provided toy/stuffed animal, coloring book to patient or family member [] Provided Communion [] Anointing/[place] [] Salvation [] Completed spiritual assessment [] Other: Impact on Illness or Injury [] Angry [] Fearful [] Anxious [] Often cries [] Exhaustion [] Unable to work [] Unable to attend buddhism [] Unable to walk/stand [] Unable to read [] Unable to drive [] Unable to eat/drink [] Unable to sleep [] Unable to be with family [] Patient intubated [] Other: Summary Time spent with patient
--- NOTE | 2023-11-16 10:05 | PM.DCS ---
Discharge Providers Date of Admission: 11/15/23 14:14 Date of Discharge: November 16, 2023 Attending Provider at Admission: Gala Heller MD Attending Provider at Discharge: Raymond Jarquin MD Primary Care Provider: Juliana Beckett, Deejay at Discharge Discharge Diagnosis (1) Community acquired pneumonia: Status: Acute Qualifiers: Laterality: right Lung location: middle lobe of lung Qualified Code(s): J18.9 - Pneumonia, unspecified organism (2) Congestive heart failure: Status: Chronic Qualifiers: Heart failure chronicity: acute on chronic Heart failure type: systolic Qualified Code(s): I50.23 - Acute on chronic systolic (congestive) heart failure Permanent problem details: EF 10/2023 30-35% on echo at [facility] (3) Lactic acidosis: Status: Acute (4) Elevated liver enzymes: Status: Acute (5) Acute hyponatremia: Status: Acute (6) Essential hypertension: Status: Chronic (7) Hyperlipidemia: Status: Chronic Qualifiers: Hyperlipidemia type: mixed hyperlipidemia Qualified Code(s): E78.2 - Mixed hyperlipidemia (8) BPH (benign prostatic hyperplasia): Status: Chronic Qualifiers: Lower urinary tract symptom presence: symptoms present Lower urinary tract symptom detail: urinary hesitancy Qualified Code(s): N40.1 - Benign prostatic hyperplasia with lower urinary tract symptoms; R39.11 - Hesitancy of micturition (9) Atrial fibrillation: Status: Chronic Qualifiers: Atrial fibrillation type: longstanding persistent Qualified Code(s): I48.11 - Longstanding persistent atrial fibrillation Permanent problem details: no anticoagulation due to hx of SAH, has Watchman device (10) GERD (gastroesophageal reflux disease): Status: Chronic (11) Erectile dysfunction: Status: Acute (12) Subarachnoid hemorrhage: Status: Acute Permanent problem details: 04/2023 while on anticoagulation for a fib Reason for Visit Reason for Visit: blood in urine, headache, diarrhea Hospital Course Hospital Course 88-year-old male with history of systolic CHF, A-fib not a candidate for anticoagulation secondary to subarachnoid hemorrhage history, present to the hospital with chief complaint of shortness of breath green sputum production, he was diagnosed with right-sided community-acquired pneumonia for which he required antibiotics, lactic acid improved he was diagnosed with sepsis related to pneumonia, cultures negative, afebrile, patient is feeling much better on the day of discharge, he is not requiring oxygen, he is afebrile, blood pressure stable, I will add albuterol, levofloxacin 7-day regimen, add Lasix to be needed on as-needed basis along potassium supplementation. Patient has a pacemaker. Patient is experiencing hesitancy voiding urine, bladder diverticulum noted he will need cystoscopy, creatinine is normal. I will give him referral to see Dr. Zamorano urology at [facility]. We also taught him self-catheterization before discharge. Physical Exam Narrative: Mild signs of fluid overload Pleasant cough Eating breakfast Currently on room air Discharge Data Studies Completed and Pending Completed Studies During Hospitalization Category Date Time Status CT kidney stone 47833 Stat Cat Scan 11/15/23 12:12 Completed XR chest 1V portable [id number] Stat Exams 11/15/23 11:37 Completed US gall bladder [id number] Stat Ultrasound 11/15/23 12:47 Completed Pending at discharge Category Date Time Status Blood Culture Stat Lab 11/15/23 21:06 Results Sputum Culture and Gram Stain Stat Lab 11/15/23 15:00 Received Radiology Impressions Chest X-Ray 11/15/23 11:37 IMPRESSION: 1. Bibasilar infiltrates have increased in comparison to the prior study. Most likely this represents increase in subsegmental atelectasis but infection and aspiration are also considerations. 2. Unchanged cardiomegaly. Laboratory Results WBC 9.62 10^3/uL (3.29-11.43) 11/16/23 04:27 RBC 3.83 10^6/uL (3.85-5.65) L 11/16/23 04:27 Hgb 13.10 g/dL (11.27-16.99) 11/16/23 04:27 Hct 37.6 % (37-53) 11/16/23 04:27 MCV 98.2 fl (82-101) 11/16/23 04:27 MCH 34.2 pg (27-33) H 11/16/23 04:27 MCHC 34.8 g/dL (30-55) 11/16/23 04:27 RDW 13.0 % (12.1-15.1) 11/16/23 04:27 Plt Count 195 10^3/cmm (157-399) 11/16/23 04:27 MPV 8.9 fL (7.4-10.4) 11/16/23 04:27 Neut % (Auto) 76.5 % 11/16/23 04:27 Lymph % (Auto) 11.2 % 11/16/23 04:27 [place] % (Auto) 11.7 % 11/16/23 04:27 Eos % (Auto) 0.0 % 11/16/23 04:27 Baso % (Auto) 0.2 % 11/16/23 04:27 Neut # (Auto) 7.35 10^3/uL (1.8-7.7) 11/16/23 04:27 Lymph # (Auto) 1.1 10^3/uL (0.8-4.8) 11/16/23 04:27 [place] # (Auto) 1.1 10^3/uL (0.2-0.9) H 11/16/23 04:27 Eos # (Auto) 0.0 10^3/uL (0.0-0.8) 11/16/23 04:27 Baso # (Auto) 0.0 10^3/uL (0.0-0.1) 11/16/23 04:27 Nucleated RBC % (auto) 0 % 11/16/23 04:27 Nucleated RBCs # 0.0 /100WBC 11/16/23 04:27 Sodium 127 mmol/L (136-145) L 11/16/23 04:27 Potassium 3.6 mmol/L (3.5-5.1) 11/16/23 04:27 Chloride 92 mmol/L (98-107) L 11/16/23 04:27 Carbon Dioxide 23 mmol/L (22-29) 11/16/23 04:27 Anion Gap 15.6 (5-19) 11/16/23 04:27 BUN 17 mg/dL (8-23) 11/16/23 04:27 Creatinine 0.9 mg/dL (0.7-1.2) 11/16/23 04:27 GFR Calculation Not Reportable 11/16/23 04:27 Glucose 104 mg/dL (65-115) 11/16/23 04:27 Calculated Osmolality 266 mOsm/kg (285-295) L 11/16/23 04:27 Lactic Acid 2.7 mmol/L (0.5-2.2) H 11/15/23 11:00 Lactic Acid (Sepsis) 2.3 mmol/L (0.5-2.2) H 11/15/23 14:45 Lactate 1.5 mmol/L (0.5-2.2) 11/16/23 04:27 Calcium 8.2 mg/dL (8.5-10.5) L 11/16/23 04:27 Phosphorus 2.5 mg/dL (2.5-4.5) 11/16/23 04:27 Magnesium 1.6 mg/dL (1.7-2.3) L 11/16/23 04:27 Total Bilirubin 1.3 mg/dL (0.15-1.2) H 11/16/23 04:27 AST 73 U/L (0-40) H 11/16/23 04:27 ALT 56 U/L (0-41) H 11/16/23 04:27 Alkaline Phosphatase 106 U/L (40-130) 11/16/23 04:27 Creatine Kinase 72 U/L (39-308) 11/16/23 04:27 Troponin T Baseline 32 ng/L (0-15) H 11/15/23 14:20 Troponin T 120 Minute 32.10 ng/L (0-15) H 11/15/23 16:52 Delta Troponin T 0.10 ABS# (0-10) 11/15/23 16:52 Troponin T Hi Sens 6Hr 35.81 ng/L (0-15) H 11/15/23 21:06 Troponin T Hi Sens 6Hr Delta 3.81 ng/L (0-12) 11/15/23 21:06 NT-Pro-B Natriuret Pep 6442 pg/mL (0-450) H 11/15/23 11:00 Total Protein 5.8 g/dL (6.6-8.7) L 11/16/23 04:27 Albumin 2.9 g/dL (3.5-5.2) L 11/16/23 04:27 Globulin 2.9 g/dL (1.3-4.6) 11/16/23 04:27 Procalcitonin 0.39 ng/mL (0-0.5) 11/16/23 04:27 Urine Color Yellow (Yellow) 11/15/23 15:00 Urine Appearance Clear (CLEAR) 11/15/23 15:00 Urine pH 6 (5-7) 11/15/23 15:00 Ur Specific [place] 1.010 (1.005-1.030) 11/15/23 15:00 Urine Protein 1+ (Negative) H 11/15/23 15:00 Urine Glucose (UA) Norm (Normal) 11/15/23 15:00 Urine Ketones Negative (Negative) 11/15/23 15:00 Urine Blood 2+ (Negative) H 11/15/23 15:00 Urine Nitrate Negative (Negative) 11/15/23 15:00 Urine Bilirubin 1+ (Negative) H 11/15/23 15:00 Urine Urobilinogen 4 mg/dL (Negative) H 11/15/23 15:00 Ur Leukocyte Esterase Negative (Negative) 11/15/23 15:00 Urine RBC 0-4 /hpf (0-2) H 11/15/23 15:00 Urine WBC 0-4 /hpf (0-5) H 11/15/23 15:00 Ur Squamous Epith Cells 0-4 /hpf (0-5) H 11/15/23 15:00 Amorphous Sediment Not Reportable 11/15/23 15:00 Urine Bacteria Trace /hpf (NONE) 11/15/23 15:00 Coronavirus 229E (PCR) Not detected (NOT DETECT) 11/15/23 11:50 Human Metapneumovir PCR Not detected (NOT DETECT) 11/15/23 14:01 Influenza Type A Ag negative (Negative) 11/15/23 11:50 Influenza Type B Ag negative (Negative) 11/15/23 11:50 Entero/Rhino (PCR) Detected (NOT DETECT) A 11/15/23 14:01 SARS-CoV-2 (PCR) Not detected (NOT DETECT) 11/15/23 11:50 Vitals Last Vital Signs Temp 97.7 F 11/16/23 07:36 Pulse 71 11/16/23 08:59 Resp 16 11/16/23 08:52 BP 120/70 11/16/23 07:36 Pulse Ox 95 11/16/23 08:52 O2 Del Method Room Air 11/16/23 08:52 Discharge Plan Discharge Patient Disposition: Home Condition: Stable Prescriptions: New potassium chloride 10 mEq tablet extended release 10 meq PO DAILY Qty: 30 0RF albuterol sulfate 90 mcg/actuation HFA aerosol inhaler 2 inh inhalation Q8H PRN (Reason: shortness of breath or wheezing) Qty: 6.7 0RF levofloxacin 750 mg tablet 750 mg PO DAILY 7 Days Qty: 7 0RF furosemide [Lasix] 20 mg tablet 20 mg PO DAILY PRN (Reason: Shortness of breath, > 3 pounds weight gain 1 day ) Qty: 30 0RF Rx Instructions: Shortness of breath or weight gain more than 3 pounds in 1 day Take potassium only when you take Lasix Continued (DME) mdINR 1 kit See Rx Instructions .Route .MEDSUPPLY Qty: 1 0RF Rx Instructions: As directed sildenafil [Viagra] 100 mg tablet 100 mg PO DAILY PRN (Reason: sexual activity) Qty: 30 3RF Rx Instructions: administer 30 minutes to 4 hours before activity spironolactone 25 mg tablet 25 mg PO DAILY simvastatin 20 mg tablet 20 mg PO BEDTIME benzonatate 100 mg capsule 100 mg PO TID PRN (Reason: cough) Qty: 30 0RF lisinopril 5 mg tablet 5 mg PO QAM tamsulosin 0.4 mg capsule 0.4 mg PO DAILY amlodipine 2.5 mg tablet 2.5 mg PO QPM clopidogrel 75 mg tablet 75 mg PO QPM omeprazole 40 mg capsule,delayed release(DR/EC) 40 mg PO QAM Aspir-81 81 mg Tablet,Delayed Release (Dr/Ec) 81 mg PO DAILY tramadol 50 mg tablet 50 - 100 mg PO Q6H PRN (Reason: Pain) Vitamin B-6 50 mg Tablet 50 mg PO DAILY finasteride 5 mg tablet 5 mg PO QAM duloxetine 30 mg capsule,delayed release(DR/EC) 30 mg PO BID PRN (Reason: Anxiety) vitamin H12-liwoj acid 500-400 mcg Tablet 1 tab PO DAILY Rx Instructions: administer with a meal Discharge Orders: Discharge Order (Routine); Ordered 11/16/23 Ordered By: Raymond Jarquin Referrals: Brandyn Zamorano [Referring] - 1-3 days Juliana Beckett MD [Primary Care Provider] - Patient Instructions: Opioid Safety Discharge Attestations Time Spent in Discharge Care*: greater than 30 min Quality Metrics Clinical Quality Measures [ No reported AMI, CVA or VTE this stay] Coding Level of Care Code Acute Code for Chg Fwd Diagnoses Community acquired pneumonia of right middle lobe of lung J18.9 Laterality: right Lung location: middle lobe of lung Acute on chronic systolic congestive heart failure I50.23 Heart failure chronicity: acute on chronic Heart failure type: systolic Lactic acidosis E87.20 Elevated liver enzymes R74.8 Acute hyponatremia E87.1 Essential hypertension I10 Mixed hyperlipidemia E78.2 Hyperlipidemia type: mixed hyperlipidemia Benign prostatic hyperplasia with urinary hesitancy N40.1; R39.11 Lower urinary tract symptom presence: symptoms present Lower urinary tract symptom detail: urinary hesitancy Longstanding persistent atrial fibrillation I48.11 Atrial fibrillation type: longstanding persistent GERD (gastroesophageal reflux disease) K21.9 Erectile dysfunction N52.9 Subarachnoid hemorrhage I60.9
--- NOTE | 2023-11-16 11:47 | PC.NURSE ---
Provider is notified that patient and his daughter do not want to learn to self catheter him. Patient said if I need to have a catheter placed I will go into my doctors office and have it done. Provider okay'd not teaching this. Provider is also notified that they would like to have home health care set up.
== END 2023-11-16 12:50 | disposition home health service (06) ==
LOC: ER 12:12 → CSU 14:23
PROVIDERS: Physician Assistant; Admitting Provider Hospitalist; Emergency Provider Family Medicine; PCP Family Medicine; Visit Provider Internal Medicine
DX: J18.9 Pneumonia, unspecified organism (principal); I11.0 Hypertensive heart disease with heart failure; I50.23 Acute on chronic systolic (congestive) heart failure; E87.20 Acidosis, unspecified; R74.8 Abnormal levels of other serum enzymes; E87.1 Hypo-osmolality and hyponatremia; E78.2 Mixed hyperlipidemia; N40.1 Benign prostatic hyperplasia with lower urinary tract symptoms; R39.11 Hesitancy of micturition; I48.11 Longstanding persistent atrial fibrillation; K21.9 Gastro-esophageal reflux disease without esophagitis; N52.9 Male erectile dysfunction, unspecified; I60.9 Nontraumatic subarachnoid hemorrhage, unspecified; I48.91 Unspecified atrial fibrillation; Z95.0 Presence of cardiac pacemaker; R94.5 Abnormal results of liver function studies
CPT/HCPCS: 36415; 71045; 74176; 76705; 80053; 81001; 82550; 83605; 83735; 83880; 84100; 84145; 84484; 85025; 87040; 87070; 87205; 87635; 87801; 87804; 93005; 94640; 96365; 96366; 96367; 96375; 96376; 99285; A9270; G0378; J0456; J0696; J1940; J7030; J7050; Q0144